=== PATIENT | female | born 1985 | race African-American/Black ===

== ENCOUNTER 2017-04-26 12:44 | Emergency (ER) | payer BC, OTHER ==
[2017-04-26 13:38] LABS: Urine Bilirubin Negative (NEGATIVE); Urine Blood 50 /ul (NEGATIVE); Urine Ketone Negative (NEGATIVE); Urine Nitrite Negative (NEGATIVE); Urine Protein 100 mg/dL (NEGATIVE); Urine Specific Gravity 1.015 SP.GR. (1.005-1.010); Urine Urobilinogen Normal (NORMAL)
[2017-04-26 13:42] LABS: Urine Appearance Clear; Urine Color Pale Yellow
[2017-04-26 13:43] LABS: Urine Bacteria TRACE; Urine WBC None Seen /hpf (0-5)
--- NOTE | 2017-04-26 13:50 | ERNOTE ---
Abdominal HPI - Narrative Date of Service: 04/26/17 - General Chief Complaint: Abdominal Pain Time Seen by Provider: 04/26/17 13:42 Source: patient Exam Limitations: no limitations - Immun/Allergies/Home Medications Immunizatons: IMMUNIZATION HX Immunizations Up to Date Yes History of Influenza Vaccine Yes Allergies/Adverse Reactions: Allergies No Known Allergies Allergy (Verified 04/26/17 13:08) Home Medications: HOME MEDICATIONS Atenolol [Tenormin] 25 mg PO DAILY 04/26/17 [Last Taken Unknown] Magnesium 1,000 mg PO DAILY 04/26/17 [Last Taken Unknown] Pnv51/Iron Fum/FA/Om-3/Dha/Epa [ Multi + Dha Softgel] 1 each PO DAILY [Last Taken Unknown] - History of Present Illness Narrative: 32yo, F, presents to ER with RLQ abd pain and urinary symptoms. She notes have RLQ pain onset at 01:30 this am, along with dysuria, frequency of urination. Notes she void frequent, small amts and after voiding feels she has to go again shortly after. Denies any vaginal bleeding or spotting. She also note a R. frontal LING, which has been intermittently occurring t/o her . On for IVF, Reglan and Benadryl to help the LING per Dr. Angelo. She is 17 week . Date (Duration): 04/26/17 Time (Timing): 01:30 Timing: constant Associated Symptoms: Present: headache, nausea - mild. Absent: fever/chills, shortness of breath Prior Abdominal Problems: Present: none Review of Systems - Review of Systems Constitutional: Absent: fever, chills, fatigue Respiratory: Absent: shortness of breath, cough, wheezing Cardiology: Absent: chest pain Gastrointestinal/Abdominal: Present: abdominal pain, other - last BM 8:00 today "normal". Absent: nausea, vomiting, diarrhea Genitourinary: Present: frequency, dysuria. Absent: hematuria, discharge, other - denies vaginal bleeding/spotting Musculoskeletal: Absent: back pain Skin: Absent: rash - Patient's Past Medical History Patient History - Medical: Headache, Migraines, Other Patient History - Cardiac/Respiratory: No pertinent hx Patient History - Cancer: No Hx of Cancer Patient History - Surgical Procedures: T & A Patient History - Other: None - Family History Brother Family History - Medical: Diabetes Type 1 Family History - Cardiac/Respiratory: No pertinent hx Grandmother-Maternal Family History - Medical: Diabetes Type 2 Family History - Cardiac/Respiratory: CHF, Hypertension Grandmother-Paternal Family History - Medical: , No pertinent hx Family History - Cardiac/Respiratory: No pertinent hx - Social History Living Situations: significant other Abuse History: No History of abuse Psych History: Hx of Anxiety, Hx of Depression Smoking Status: Never smoker Have you smoked in the past 12 months: No Do you dip or chew tobacco: No Alcohol Use: none Drug Use: none - Immunizations Immunizations Up to Date: Yes History of Influenza Vaccine: Yes Physical Exam - Physical Exam General Appearance: Present: wd/wn, alert, no apparent distress Respiratory: Present: no respiratory distress, normal breath sounds. Absent: rales, rhonchi, wheezing Cardiovascular/Chest: Present: regular rate, rhythm, no murmur Gastrointestinal/Abdominal: Present: normal bowel sounds, nondistended, soft, tenderness - RLQ Skin Exam: Present: normal color, warm/dry ED Progress - Date and Time Seen: Date and Time: 04/26/17 15:15 Pt continued to rate LING 7.5/10, notes abd pain improved at 5/10. Contacted Dr. Angelo and reviewed lab results, HPI and exam findings with him. He recommends in the future pt call OB prior to coming to ER. States symptoms suggestive of round ligament pain. Requests pt receive Benadryl 25mg IV, along with Reglan 10mg q15min until LING resolved (up to 4 doses). Also to conform pt taking ordered magnesium. 04/26/17 1520: Discussed Dr. Angelo recommendations and tx plan with pt. She v/ u. - Results and Orders Patient's Lab Results:: I have reviewed the patient's lab results. Results and Orders: Laboratory Tests 04/26/17 04/26/17 04/26/17 13:14 14:04 14:04 WBC 8.4 RBC 3.69 L Hgb 11.5 L Hct 33.0 L MCV 89.4 MCH 31.2 H MCHC 34.8 RDW 12.2 Plt Count 161 MPV 11.0 H Immature Gran % (Auto) 0.50 H Immature Gran # (Auto) 0.04 H Neutrophils % 75.6 H Lymphocytes % 16.4 L Monocytes % 6.5 Basophils % 0.4 Nucleated RBC % 0.0 Neutrophils # 6.3 H Lymphocytes # 1.4 L Monocytes # 0.5 Eosinophils # 0.1 Absolute Basophils 0.0 ESR 60 H Sodium Plasma Sodium Potassium Chloride Carbon Dioxide Anion Gap BUN Creatinine Est GFR (Non-Af Amer) BUN/Creatinine Ratio Random Glucose Calcium Calcium Adj for Albumin Total Bilirubin AST ALT Alkaline Phosphatase C-Reactive Prot, Quant Total Protein Albumin Amylase Lipase Urine Color Pale yellow Urine Appearance Clear Urine pH 6.0 Ur Specific [place] 1.015 Urine Protein 100 H Urine Glucose (UA) Negative Urine Ketones Negative Urine Blood 50 H Urine Nitrate Negative Urine Bilirubin Negative Prot Sulfosalicylic Acd 2+ H Urine Urobilinogen Normal Ur Leukocyte Esterase Negative Urine RBC 5-10 H Urine WBC None seen Ur Epithelial Cells 0-5 Urine Bacteria Trace Urine Culture Comments No culture indicated 04/26/17 14:04 WBC RBC Hgb Hct MCV MCH MCHC RDW Plt Count MPV Immature Gran % (Auto) Immature Gran # (Auto) Neutrophils % Lymphocytes % Monocytes % Basophils % Nucleated RBC % Neutrophils # Lymphocytes # Monocytes # Eosinophils # Absolute Basophils ESR Sodium 135 Plasma Sodium 135 Potassium 4.0 Chloride 101 Carbon Dioxide 26.3 Anion Gap 11.7 BUN 13 Creatinine 0.93 Est GFR (Non-Af Amer) 90 BUN/Creatinine Ratio 14.0 Random Glucose 83 Calcium 8.7 Calcium Adj for Albumin 9.7 Total Bilirubin 0.2 AST 19 ALT 20 Alkaline Phosphatase 57 C-Reactive Prot, Quant 0.8 Total Protein 6.3 Albumin 2.4 L Amylase 73 Lipase 125 Urine Color Urine Appearance Urine pH Ur Specific [place] Urine Protein Urine Glucose (UA) Urine Ketones Urine Blood Urine Nitrate Urine Bilirubin Prot Sulfosalicylic Acd Urine Urobilinogen Ur Leukocyte Esterase Urine RBC Urine WBC Ur Epithelial Cells Urine Bacteria Urine Culture Comments - Vital Signs Patient's Vital Signs:: I have reviewed the patient's vital signs. Vital Signs: Vital Signs 04/26/17 13:03 Temperature 36.8 C Pulse Rate 84 Respiratory 16 Rate Blood Pressure 129/69 O2 Sat by Pulse 85 L Oximetry - Progress/Reassessment Chief Complaint: Abdominal Pain Progress:: Improved Departure - Departure Clinical Impression: Round ligament pain Migraine Qualifiers: Migraine type: unspecified Status migrainosus presence: without status migrainosus Intractability: not intractable Qualified Code(s): G43.909 - Migraine, unspecified, not intractable, without status migrainosus Disposition: Home self-care Condition: Good Instructions: Round Ligament Pain, Migraine Headache, [id number] Additional Instructions: Keep schedule appt with Dr. Angelo as previously scheduled Continue Magnesium as previously ordered by OB Dr. Angelo requests if you call OB office or OB deep well contractor after hours for any problems or concerns Contact there office if you develop worsening symptoms, fever, chills, vomiting , vaginal bleeding or any other concerning symptoms Referrals: Kvng Angelo DO [Staff Physician] -
--- OUTSIDE RECORDS SUMMARY | 2017-04-26 13:52 | XMS REPORT | Continuity of Care Document ---
:1985 Author Organization [facility] Address [place] [address] Care Team Providers Name Role Phone Provider, None Per Patient Primary Care Provider Unavailable Source Comments This disclosure is being made pursuant to the [employer] program and maynot contain all information available regarding this patient.[facility] Active Allergies and Adverse Reactions No Known Allergies Current Medications Be aware that medications may not be up to date as of this document. Alwaysverify current medications with the patient. Prescription Sig. Disp. Refills Start Date End Date Status cephALEXin (KEFLEX) Take 1 oral q 8 30 capsule 0 02/07/2017 Active 500 MG capsule houors for 10 days ondansetron (ZOFRAN) Take 1 tablet by 15 tablet 1 03/21/2017 Active 4 MG tablet mouth every 8 (eight) hours as needed for Nausea. amoxicillin (AMOXIL) Take 1 tablet by 20 tablet 0 03/21/2017 03/31/2017 875 MG tablet mouth 2 (two) times daily. azithromycin Take 500 mg (2 6 tablet 0 04/18/2017 04/23/2017 (ZITHROMAX) 250 MG tabs) on first tablet day followed by 250 mg (1 tab) daily x 4 more days Hospital, Clinic, or Ordered Dose Route Frequency Start Date End Date Status Other Facility Administered Medication diphenhydrAMINE 25mg IM Once 04/18/2017 04/18/2017 Ended (BENADRYL) injection metoclopramide 5mg IM Once 04/18/2017 04/18/2017 Discontinued (REGLAN) injection promethazine 25mg IM Once 04/18/2017 04/18/2017 Ended (PHENERGAN) injection Active Problems Not on file Most Recent Encounters Date Type Specialty Providers Description 04/18/2017 Office Visit Family Medicine Timothy Gupta, 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 (Primary Dx); Acute recurrent maxillary sinusitis 03/21/2017 Office Visit Family Medicine Shweta Wen, Subacute maxillary DIE MAKER TRIM sinusitis (Primary Dx) 02/07/2017 Office Visit Family Medicine Shweta Wen, Subacute maxillary DIE MAKER TRIM sinusitis (Primary Dx) Social History Tobacco Use Types Packs/Day Years Used Date Never Smoker Tobacco Cessation:Counseling Given: No Comments: Last Filed Vital Signs Vital Sign Reading Time Taken Blood Pressure 122/80 04/18/2017 5:22 PM CDT Pulse 79 04/18/2017 5:22 PM CDT Temperature 36.6 C (97.9 F) 04/18/2017 5:22 PM CDT Respiratory Rate 22 04/18/2017 5:22 PM CDT Height 1.626 m (5' 4") 04/18/2017 5:22 PM CDT Weight 104.327 kg (230 lb) 04/18/2017 5:22 PM CDT Body Mass Index 39.46 04/18/2017 5:22 PM CDT Oxygen Saturation 98% 04/18/2017 5:22 PM CDT Plan of Care Health Maintenance Due Date Last Done Comments Tetanus/Pertussis (1 - Tdap) 2005 Pap Smear 2007 Influenza Immunization (#1) 2017 Results from Last 3 Months Not on file Insurance Payer Benefit Plan / Group Subscriber ID Type Phone Address ELIZABETH DOMINGUEZ [facility] PPO [id number] PPO [phone] [id number] [place] [address] [phone] [place] [address]
[2017-04-26] MEDS ORDERED: NORMAL SALINE 1,000 ML IV ONE (13:57)
[2017-04-26 14:14] LABS: Hemoglobin 11.5 gm/dL (12.5-16.0); Mean Cell Volume 89.4 fl (78-100); Mean Corpuscular Hemoglobin 31.2 pg (27-31); Mean Corpuscular Hgb Conc 34.8 g/dl (32-36); Neutrophil # 6.3 K/mm3 (1.3-6.0); Neutrophil % 75.6 % (42-75.0); Platelet Count 161 K/mm3 (150-450); Red Blood Count 3.69 M/mm3 (4.2-5.4); Red Cell Distribution Width 12.2 % (11.5-14.0); White Blood Count 8.4 K/mm3 (4.0-10.5)
[2017-04-26 14:25] LABS: Albumin * 2.4 gm/dl (3.4-5.0); Anion Gap 11.7 mmol/L (6.8-13.8); Bilirubin, Total 0.2 mg/dL (0.0-1.1); CRP 0.8 mg/dL (0.0-0.9); Ca. Corrected For Albumin 9.7 mg/dL (8.4-10.2); Calcium * 8.7 mg/dL (7.9-10.9); Carbon Dioxide 26.3 mmol/L (24-32.6); Total Protein 6.3 gm/dL (6.2-8.2)
[2017-04-26] MEDS ORDERED: diphenhydrAMINE HCL 50 MG/ML VIAL IV ONE (15:22)
[2017-04-26] MEDS ORDERED: METOCLOPRAMIDE HCL 5 MG/ML VIAL IV ONE ×2 (15:22→16:01)
[2017-04-26] MEDS ORDERED: diphenhydrAMINE HCL 50 MG/ML VIAL ONE (15:27)
[2017-04-26] MEDS ORDERED: METOCLOPRAMIDE HCL 5 MG/ML VIAL ONE ×2 (15:28→16:15)
[2017-04-26 20:46] VITALS: BP 139/87
== END 2017-04-26 17:00 | disposition home or self-care (01) ==
LOC: ER 12:44
DX: R10.2 Pelvic and perineal pain (principal); G43.909 Migraine, unspecified, not intractable, without status migrainosus; Z33.1 Pregnant state, incidental; Z3A.17 17 weeks gestation of pregnancy

== ENCOUNTER 2017-11-29 07:11 | Day surgery (SDC) | payer BC, OTHER ==
[~2017-11-29 07:11] MED LIST: RINGER'S SOLUTION,LACTATED 1,000 ML IV PRN
[2017-11-29] MEDS ORDERED: RINGER'S SOLUTION,LACTATED 1,000 ML IV ONE ×2 (07:45→10:08)
--- NOTE | 2017-11-29 08:09 | OR ---
Operative Report - Dictated Report Narrative: Operative report: 11/29/2017 Preoperative diagnosis: Desires permanent sterilization Postoperative diagnosis: Same + multiple omental adhesions Procedure: Laparoscopic bilateral salpingectomy, lysis of adhesions Surgeon: Lotus Leach D.O. [employer] Clearing Agent: OR staff Anesthesia: Gen. IV fluids: 700 Milliliters Urine output: Minimal amount of clear urine Findings: Normal-appearing uterus, tubes, and ovaries, multiple omental adhesions to the anterior and fundus of the uterus and right fallopian tube and anterior abdominal wall. Right pelvic venous congestion. EBL: Minimal Drains: None Pathology: Bilateral fallopian tubes Complications: None Condition: Stable The patient was taken to the operating room. Anesthesia was found to be adequate. The patient was prepped and draped in the normal sterile fashion in the dorsal lithotomy position. A sterile speculum was then inserted into the vagina. The [place] uterine manipulator was then inserted into the uterus. The speculum was removed. A red rubber was then inserted into the bladder to drain throughout the procedure. Attention was then turned to the abdomen. Local anesthetic was then injected within the umbilicus. A 5 mm skin incision was then made with the scalpel. A hemostat was then used to bluntly dissect down to the fascia. The 5 mm camera was then inserted into the trocar and under direct visualization inserted into the abdomen. The abdomen was then insufflated to 12 mmHg. The abdomen was then surveyed and noted as above. Attention was then turned to the left lower quadrant, the peritoneum was mapped with local anesthetic, skin incised, subcutaneous tissue bluntly dissected, and an 5 mm trocar entered into the peritoneum under direct visualization. The left fallopian tube was then grasped. Electrocautery was then used to sequentially cauterize, cut, and remove the entire fallopian tube. The omentum that was adherent to the uterus and right fallopian tube was carefully dissected away and nl anatomy restored. The right fallopian tube was then removed. The fallopian tubes were then removed under direct visualization and sent to pathology. The pedicles were again cauterized, and then inspected and found to be hemostatic. The abdomen was then desufflated. The trochars were removed under direct visualization. The skin incisions were then reapproximated with 4-0 Vicryl, benzoin and Steri-Strips. Band-Aids were then placed. The [place] uterine manipulator was then removed and sites were hemostatic. The red rubber catheter was then removed. Clear yellow urine was noted throughout the entire procedure. The patient tolerated the procedure well. Sponge, lap, needle, and instrument counts were correct throughout the entire procedure. The patient was taken to the recovery room in stable condition.
[2017-11-29] MEDS ORDERED: BUPIVACAINE HCL/EPINEPHRINE 50 ML VIAL IJ ONE (09:10)
[2017-11-29] MEDS ORDERED: oxyCODONE HCL/ACETAMINOPHEN 1 TAB TABLET PO PRN (10:20)
[2017-11-29] MEDS ORDERED: IBUPROFEN 800 MG TABLET PO PRN (10:20)
[2017-11-29 11:28] VITALS: BP 137/72
== END 2017-11-29 07:12 | disposition home or self-care (01) ==
LOC: AMB 07:11
PROVIDERS: ATTEND Obstetrics & Gynecology Gynecologic Oncology
PROC: 0UT74ZZ Resection of Bilateral Fallopian Tubes, Percutaneous Endoscopic Approach (ICD-10-PCS; principal; 2017-11-29)
DX: Z30.2 Encounter for sterilization (principal); F32.9 Major depressive disorder, single episode, unspecified; E66.9 Obesity, unspecified; Z68.41 Body mass index [BMI] 40.0-44.9, adult